=== PATIENT | female | born 1960 | race Caucasian/White ===

== ENCOUNTER 2025-04-07 20:22 | Inpatient (IN) | payer BC, SELFPAY ==
[2025-04-07 21:02] LABS: #Basophils Less than 0.03 10x3/uL (0.0-0.2); #Eosinophils Less than 0.03 10x3/uL (0.0-0.7); #Monocytes Less than 0.03 10x3/uL (0.11-0.59); #Neutrophils 5.83 10x3/uL (1.40-6.50); %Basophils 0.2 % (0.0-1.0); %Eosinophils 0.0 % (0.0-10.0); %Lymphocytes 11.3 % (21.0-51.0); %Monocytes 0.2 % (0.0-10.0); %Neutrophils 87.7 % (42.0-75.0); Hematocrit 33.6 % (36.0-47.0); Hemoglobin 10.0 g/dL (12.0-16.0); Mean Corpuscular Hemoglobin 30.3 pg (27.0-31.0); Mean Corpuscular Volume 101.8 fL (78.0-98.0); Platelet Count 162 10x3/uL (130-400); Red Blood Cell (RBC) Count 3.30 mill/uL (4.20-5.40); White Blood Cell (WBC) Count 6.64 10x3/uL (4.8-10.8)
[2025-04-07 21:06] LABS: Base Excess -22.6 mEq/L (-2.0 to +3.0); Calcium, Ionized (venous) 1.39 mmol/L (1.16-1.32); Chloride (VBG) 110 mmol/L (98-106); Hematocrit-VBG 34 % (36.0-47.0); Hemoglobin (Hb) 11.4 g/dL (11.7-16.0); Potassium (VBG) 5.42 mmol/L (3.70-5.30); Sodium 146 mmol/L (133-146)
[2025-04-07] MEDS ORDERED: Ondansetron PF 4 MG/2 ML Vial ONE (21:07)
[2025-04-07 21:24] LABS: Actual Bicarbonate (HCO3v) 6.1 mEq/L (22-28)
[2025-04-07] MEDS ORDERED: INSULIN REGULAR IN 0.9 % NACL 100 ML ONE (21:24)
[2025-04-07] MEDS ORDERED: CALCIUM GLUC 1 GM/NS 50 ML IV Bag ONE (21:24)
[2025-04-07 21:40] LABS: ALT (SGPT) 109 U/L (Less than 34); AST (SGOT) 41 U/L (11-34); Albumin 4.1 g/dL (3.1-4.5); Alkaline Phosphatase 301 U/L (40-110); Anion Gap 30 mmol/L (10-20); BUN (Urea Nitrogen) 31 mg/dL (9.8-20.1); Bilirubin, Total 1.6 mg/dL (0.3-1.2); Calc. Creatinine Clearance 0 mL/min (70-130); Calcium 9.9 mg/dL (7.8-10.44); Carbon Dioxide Less than 8 mmol/L (23-31); Chloride 113 mmol/L (98-107); Globulin 3.4 g/dL (2.4-3.5); Glucose 508 mg/dL (80-115); Lipase 4 U/L (8-78); Magnesium 2.6 mg/dL (1.6-2.6); Potassium 5.3 mmol/L (3.5-5.1); Sodium 144 mmol/L (136-145)
[2025-04-07 23:17] LABS: Bacteria/HPF None Seen HPF (None Seen); CAUTI Indications for Culture Alt mental st,lethar; Glucose, Urine (Dipstick) Greater than 1000 mg/dL (Negative); Leukocyte Negative Leu/uL (Negative); Protein, Urine (Dipstick) 30 mg/dL (Neg-Trace); RBC/HPF 0-3 HPF (0-3); Specific Gravity, Urine 1.020 (1.002-1.036); WBC/HPF 0-3 HPF (0-3)
[2025-04-07 23:18] LABS: Urine Culture Reflex No No
[2025-04-08] MEDS ORDERED: NS 0.9% w/ 20 MEQ KCL 1,000 ML IV PRN ×2 (00:25)
[2025-04-08] MEDS ORDERED: Acetaminophen 325 MG TAB PO PRN (00:25)
[2025-04-08] MEDS ORDERED: INSULIN REGULAR IN 0.9 % NACL 100 ML IVPB SCH (00:30)
[2025-04-08] MEDS: Ondansetron PF 4 MG/2 ML Vial IVP PRN (00:35)
[2025-04-08] MEDS ORDERED: Potassium Chloride 20 MEQ in Premix 1 BAG IVPB PRN (00:45)
[2025-04-08] MEDS ORDERED: PHOS-NAK 1 PKT PACK PO PRN (00:45)
[2025-04-08] MEDS: Electrolyte Replacement Protocol 1 EACH IVPB ONE (00:55)
[2025-04-08 00:56] LABS: Magnesium 3.1 mg/dL (1.6-2.6)
[2025-04-08] MEDS: Ondansetron PF 4 MG/2 ML Vial ONE (01:03)
[2025-04-08 01:09] LABS: Anion Gap 21 mmol/L (10-20); BUN (Urea Nitrogen) 29 mg/dL (9.8-20.1); Calc. Creatinine Clearance 0 mL/min (70-130); Calcium 8.8 mg/dL (7.8-10.44); Carbon Dioxide 9 mmol/L (23-31); Chloride 118 mmol/L (98-107); Glucose 215 mg/dL (80-115); Potassium 4.3 mmol/L (3.5-5.1); Sodium 144 mmol/L (136-145)
[2025-04-08 01:58] VITALS: BMI 19.8
[2025-04-08] MEDS: D5 1/2 NS w/20 mEq KCL 1,000 ML IV PRN (02:54)
[2025-04-08] MEDS: Dextrose 50% Abboject 50 ML SYRINGE SLOW IVP PRN (02:54)
[2025-04-08] MEDS: Sodium Bicarb 50 MEQ/50 ML Abboject 8.4% SYRINGE IVP SCH (03:00)
[2025-04-08 03:59] LABS: Cocaine Metabolite Screen Negative (Negative); THC/Cannabinoid Screen Negative (Negative); Tricyclic Screen Negative (Negative)
[2025-04-08 05:19] LABS: Anion Gap 14 mmol/L (10-20); BUN (Urea Nitrogen) 28 mg/dL (9.8-20.1); Calc. Creatinine Clearance 55 mL/min (70-130); Calcium 8.6 mg/dL (7.8-10.44); Carbon Dioxide 17 mmol/L (23-31); Chloride 121 mmol/L (98-107); Glucose 166 mg/dL (80-115); Magnesium 1.9 mg/dL (1.6-2.6); Potassium 4.2 mmol/L (3.5-5.1); Sodium 148 mmol/L (136-145)
[2025-04-08 05:21] LABS: ALT (SGPT) 75 U/L (Less than 34); AST (SGOT) 28 U/L (11-34); Albumin 3.1 g/dL (3.1-4.5); Alkaline Phosphatase 212 U/L (40-110); Bilirubin, Direct 0.5 mg/dL (0.1-0.3); Bilirubin, Total 1.1 mg/dL (0.3-1.2)
[2025-04-08] MEDS: Pantoprazole 40 MG VIAL IVP SCH (08:26)
[2025-04-08] MEDS: Magnesium 2 GM/50 ML(in water) 2 GM in Premix 1 BAG IVPB PRN (08:27)
[2025-04-08] MEDS ORDERED: Heparin 5,000 UNITS/ML VIAL SC SCH (09:00)
[2025-04-08 09:35] LABS: Anion Gap 11 mmol/L (10-20); BUN (Urea Nitrogen) 25 mg/dL (9.8-20.1); Calc. Creatinine Clearance 54 mL/min (70-130); Calcium 8.5 mg/dL (7.8-10.44); Carbon Dioxide 18 mmol/L (23-31); Chloride 121 mmol/L (98-107); Glucose 217 mg/dL (80-115); Potassium 4.2 mmol/L (3.5-5.1); Sodium 146 mmol/L (136-145)
[2025-04-08] MEDS: Apixaban 2.5 MG TAB PO SCH (12:02)
[2025-04-08] MEDS ORDERED: Dextrose 50% Abboject 50 ML SYRINGE SLOW IVP PRN (14:00)
[2025-04-08] MEDS ORDERED: Glucagon 1 MG/ML KIT IM PRN (14:00)
[2025-04-08] MEDS: Insulin Glargine 30 UNITS/0.3 ML VIAL SC SCH (14:59)
[2025-04-09] MEDS: diphenhydrAMINE 50 MG/ML VIAL IVP SCH (03:13)
[2025-04-09 03:37] LABS: #Basophils Less than 0.03 10x3/uL (0.0-0.2); #Eosinophils 0.04 10x3/uL (0.0-0.7); #Monocytes 0.07 10x3/uL (0.11-0.59); #Neutrophils 2.34 10x3/uL (1.40-6.50); %Basophils 0.3 % (0.0-1.0); %Eosinophils 1.0 % (0.0-10.0); %Lymphocytes 35.5 % (21.0-51.0); %Monocytes 1.8 % (0.0-10.0); %Neutrophils 60.1 % (42.0-75.0); Hematocrit 23.6 % (36.0-47.0); Hemoglobin 7.5 g/dL (12.0-16.0); Mean Corpuscular Hemoglobin 30.7 pg (27.0-31.0); Mean Corpuscular Volume 96.7 fL (78.0-98.0); Platelet Count 92 10x3/uL (130-400); Red Blood Cell (RBC) Count 2.44 mill/uL (4.20-5.40); White Blood Cell (WBC) Count 3.89 10x3/uL (4.8-10.8)
[2025-04-09 05:22] LABS: ALT (SGPT) 69 U/L (Less than 34); AST (SGOT) 102 U/L (11-34); Albumin 2.6 g/dL (3.1-4.5); Alkaline Phosphatase 185 U/L (40-110); Bilirubin, Direct 0.3 mg/dL (0.1-0.3); Bilirubin, Total 1.4 mg/dL (0.3-1.2)
[2025-04-09] MEDS: Insulin Glargine 30 UNITS/0.3 ML VIAL SC SCH (08:26)
[2025-04-09] MEDS: Calcium Carbonate 500 MG ChewTAB PO PRN (10:23)
[2025-04-09] MEDS: FLU (Fluarix Triv) 25-26 (6MOS UP)/PF 45 MCG/0.5 ML Syringe IM ONE (11:51)
[2025-04-09] MEDS: PNEUMOC 20-VAL CONJ-DIP CRM/PF 0.5 ML SYRINGE IM ONE (11:52)
[2025-04-09] MEDS: hydrALAZINE 20 MG/ML VIAL SLOW IVP PRN (16:02)
[2025-04-09 16:50] LABS: Anion Gap 12 mmol/L (10-20); BUN (Urea Nitrogen) 12 mg/dL (9.8-20.1); Calc. Creatinine Clearance 65 mL/min (70-130); Calcium 8.1 mg/dL (7.8-10.44); Carbon Dioxide 19 mmol/L (23-31); Chloride 112 mmol/L (98-107); Glucose 243 mg/dL (80-115); Magnesium 1.6 mg/dL (1.6-2.6); Potassium 4.0 mmol/L (3.5-5.1); Sodium 139 mmol/L (136-145)
[2025-04-09] MEDS: Rosuvastatin 20 MG TAB PO SCH (21:24)
[2025-04-09] MEDS: Melatonin 3 MG TAB PO PRN (21:24)
[2025-04-10 05:25] LABS: #Basophils Less than 0.03 10x3/uL (0.0-0.2); #Eosinophils Less than 0.03 10x3/uL (0.0-0.7); #Monocytes 0.08 10x3/uL (0.11-0.59); #Neutrophils 1.16 10x3/uL (1.40-6.50); %Basophils 0.0 % (0.0-1.0); %Eosinophils 0.7 % (0.0-10.0); %Lymphocytes 53.1 % (21.0-51.0); %Monocytes 2.9 % (0.0-10.0); %Neutrophils 42.6 % (42.0-75.0); Hematocrit 22.2 % (36.0-47.0); Hemoglobin 7.4 g/dL (12.0-16.0); Mean Corpuscular Hemoglobin 31.2 pg (27.0-31.0); Mean Corpuscular Volume 93.7 fL (78.0-98.0); Platelet Count 54 10x3/uL (130-400); Red Blood Cell (RBC) Count 2.37 mill/uL (4.20-5.40); White Blood Cell (WBC) Count 2.73 10x3/uL (4.8-10.8)
[2025-04-10 05:31] LABS: Anion Gap 11 mmol/L (10-20); BUN (Urea Nitrogen) 15 mg/dL (9.8-20.1); Calc. Creatinine Clearance 64 mL/min (70-130); Calcium 7.8 mg/dL (7.8-10.44); Carbon Dioxide 23 mmol/L (23-31); Chloride 109 mmol/L (98-107); Glucose 206 mg/dL (80-115); Potassium 3.2 mmol/L (3.5-5.1); Sodium 140 mmol/L (136-145)
[2025-04-10] MEDS: Multivitamin W/ Minerals 1 TAB PO SCH (09:17)
[2025-04-10] MEDS: Losartan 25 MG TAB PO SCH (09:17)
[2025-04-10] MEDS: valACYclovir 500 MG TAB PO SCH (09:17)
[2025-04-10 09:27] VITALS: BP 136/68; TEMP 98.7
== END 2025-04-10 15:39 | disposition home or self-care (01) | DRG 637 ==
LOC: ERS 20:22 → IMCU/EMU 23:00 → T4-B 04-09 15:23
PROVIDERS: ADMIT Internal Medicine; ATTEND Hospitalist
DX: E11.10 Type 2 diabetes mellitus with ketoacidosis without coma (principal); G93.41 Metabolic encephalopathy; N17.9 Acute kidney failure, unspecified; C25.9 Malignant neoplasm of pancreas, unspecified; C78.7 Secondary malignant neoplasm of liver and intrahepatic bile duct; I12.9 Hypertensive chronic kidney disease with stage 1 through stage 4 chronic kidney disease, or unspecified chronic kidney disease; E11.65 Type 2 diabetes mellitus with hyperglycemia; E87.5 Hyperkalemia; E11.22 Type 2 diabetes mellitus with diabetic chronic kidney disease; N18.9 Chronic kidney disease, unspecified; Z98.890 Other specified postprocedural states; Z90.710 Acquired absence of both cervix and uterus; Z79.899 Other long term (current) drug therapy; Z79.890 Hormone replacement therapy; Z79.4 Long term (current) use of insulin
CPT/HCPCS: 36415; 36416; 51702; 70450; 80048; 80053; 80076; 80306; 81001; 82010; 82140; 82805; 83036; 83605; 83690; 83735; 84100; 85025; 87040; 93005; 94760; 96361; 96365; 96366; 96375; 99292; J0360; J0613; J1200; J1815; J2405; J2470; J3475; J3480; J7030; J7120; J7999